=== PATIENT | female | born 2000 | race Caucasian/White ===

== ENCOUNTER 2021-05-26 19:48 | Emergency (ER) | payer OTHER ==
[2021-05-26 19:54] VITALS: BP 128/79
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
[2021-05-26] MEDS ORDERED: ACETAMINOPHEN 325 MG TABLET PO STA (20:26)
[2021-05-26] MEDS ORDERED: IBUPROFEN 600 MG TABLET PO STA (20:26)
--- NOTE | 2021-05-26 20:50 | XRAY Report ---
PROCEDURE: Hand 3 View RT INDICATIONS: Trauma TECHNIQUE: 3 views of the hand(s) acquired. COMPARISON: None. FINDINGS: Bones: No fractures or dislocations. No suspicious bony lesions. Soft tissues: No suspicious soft tissue calcifications. IMPRESSION: 1. No fracture or dislocation. Reviewed by: Alexei Mcclure MD on 05/26/2021 8:49 PM PDT Approved by: Alexei Mcclure MD on 05/26/2021 8:49 PM PDT Station ID: [id number]
== END 2021-05-26 21:00 | disposition home or self-care (01) ==
LOC: ED 19:48
DX: S60.211A Contusion of right wrist, initial encounter (principal); W22.8XXA Striking against or struck by other objects, initial encounter; Y93.55 Activity, bike riding; Y92.410 Unspecified street and highway as the place of occurrence of the external cause
CPT/HCPCS: 29125; 73130; 99282; 99283; A9270